=== PATIENT | female | born 1980 | race Caucasian/White ===

== ENCOUNTER 2017-10-01 19:00 | Observation (INO) ==
--- NOTE | 2017-10-01 19:31 | Emergency Department Note ---
Disposition Clinical Impression: Heart failure Disposition: Admitted As Inpatient Condition: Fair General Adult HPI - General Chief complaint: ED Extremity Problem,Nontraumatic Stated complaint: Feet swelling Nursing Notes Reviewed: Yes Vital Signs Reviewed: Yes - History of Present Illness HPI Narrative: 37-year-old female presents to the emergency department with chief complaint of lower extremity swelling. Patient states that this is bilateral. She states it started 2 days ago. Denies any shortness of breath. Denies any recent travel, history of blood clots, coagulopathies. Patient denies any history of congestive heart failure. Pain Scale: 7 - Related Data Home Medications Medication Instructions Recorded Confirmed Albuterol Sulfate [Albuterol 2 puff IH Q4HR PRN 09/09/17 10/01/17 Inhaler] Cetirizine HCl [24Hour Allergy] 10 mg PO DAILY 09/09/17 10/01/17 Fluticasone/Vilanterol [Breo 1 puff IH DAILY 09/09/17 10/01/17 Ellipta 100-25 Mcg INH] Allergies Allergy/AdvReac Type Severity Reaction Status Date / Time No Known Allergies Allergy Verified 09/09/17 12:28 All systems ED: reviewed and negative except as stated. Review of Systems: As Per HPI Constitutional: Denies: fever, weakness Cardiovascular: Denies: chest pain, palpitations, dyspnea on exertion Respiratory: Denies: cough, dyspnea, wheezes Gastrointestinal: Denies: abdominal pain, nausea, vomiting Genitourinary: Denies: urgency, dysuria Musculoskeletal: Denies: back pain Integumentary: Reports: rash Neurological: Denies: headache Psychiatric: Denies: depression Endocrine: Denies: polydipsia, polyuria Past Medical History - Past Medical History Medical history: Reports: asthma Surgical history: Reports: hysterectomy, orthopedic, other Psychiatric history: Reports: depression - Social History Smoking Status: Never smoker Smokeless Tobacco Status: No Alcohol use: Reports: none Drug use: Reports: none Physical Exam - General General appearance: in no apparent distress, obese - Head Head exam: atraumatic, normocephalic - Eye Eye exam: Present: normal appearance - ENT ENT exam: normal oropharynx, mucous membranes moist - Neck Neck exam: Present: full ROM, trachea midline - Chest Chest inspection: Present: normal inspection, symmetric chest wall rise - Respiratory Respiratory exam: Present: normal lung sounds bilaterally. Absent: respiratory distress - Cardiovascular Cardiovascular exam: Present: regular rate, normal rhythm, normal heart sounds - Abdominal Exam Abdominal exam: Present: soft, Non-Tender, other (Obese) - Extremities Exam Extremities exam: Present: pedal edema, other (1+ pitting edema bilaterally, erythema of the lower extremities consistent with venous stasis.) - Back Exam Back exam: Present: full ROM - Neurological Exam Neurological exam: Present: alert, oriented X3 - Psychiatric Psychiatric exam: Present: normal mood - Skin Skin exam: Present: warm, dry Course Vital Signs Temperature 98.4 F 10/01/17 19:01 Pulse Rate 99 10/01/17 19:01 Respiratory Rate 20 10/01/17 19:01 Blood Pressure 153/116 10/01/17 19:01 O2 Sat by Pulse Oximetry 96 10/01/17 19:01 Temperature 98.1 F 10/02/17 02:57 Pulse Rate 91 10/02/17 02:57 Respiratory Rate 16 10/02/17 02:57 Blood Pressure 129/90 10/02/17 02:57 O2 Sat by Pulse Oximetry 93 10/02/17 02:57 Oxygen Delivery Oxygen Delivery Room Air Medical Decision Making - [facility] Narrative Medical decision making narrative: 37-year-old female with past medical history of asthma presents to the emergency department with new onset lower extremity edema over the last 2 days. At this time, patient does have some erythema of the lower extremities. However, this does not appear to be cellulitic in nature. It appears to be more venous stasis. Patient has huge body habitus. Because of lower extremity swelling is bilateral in nature, and there are no palpable cords, patient is not having any shortness of breath, I do not think this is a pulmonary embolus. However, we will work this patient up to make sure she does not have any element of heart failure. We will obtain chest x-ray, EKG, BNP, BMP, CBC, troponin. We will also obtain a TSH. Patient is currently hemodynamically stable and not in any acute distress. Chest x-ray reveals evidence of mild vascular congestion and enlargement of the cardiac silhouette. Patient was given 40 mg Lasix in the emergency department. I discussed the results with the Patient admitted to hospitalist for further observation, diuresis, and workup of possible new congestive heart failure. Chest X-Ray 10/01/17 19:30 IMPRESSION: Mild central vascular congestion and interval cardiac silhouette enlargement. Bibasilar atelectasis. D/ / 10/01/2017 20:02:47 Florentino Gray MD / arina Interpreting Provider: Florentino Gray MD - Lab Data Result diagrams: 10/02/17 05:28 10/01/17 19:34 Lab Results 10/01/17 10/01/17 10/01/17 Range/Units 19:34 19:34 19:34 WBC 7.5 (4.3-11.1) K/mcL RBC 4.79 (3.82-4.97) M/mcL Hgb 13.5 (11.5-15.4) g/dL Hct 42.2 (35.3-44.9) % MCV 88.1 (83.0-100.0) fL MCH 28.2 (28.0-33.3) pg MCHC 32.0 (31.6-35.5) g/dL RDW 14.6 H (11.5-14.5) % Plt Count 190 (140-400) K/mcL MPV 10.2 (9.4-12.4) fL Immature Gran % 0.5 (0-4) % Seg Neutrophils % 65.8 % Lymphocytes % 24.3 % Monocytes % 5.4 % Eosinophils % 3.6 % Basophils % 0.4 % Neutrophils # 5.0 (1.6-8.9) K/mcL Lymphocytes # 1.8 (0.6-4.6) K/mcL Monocytes # 0.4 (0.0-1.3) K/mcL Eosinophils # 0.3 (0.0-0.6) K/mcL Basophils # 0.0 (0.0-0.2) K/mcL Sodium 141 (136-145) mEq/L Potassium 3.5 (3.5-5.1) mEq/L Chloride 107 (98-107) mEq/L Carbon Dioxide 27 (23-29) mEq/L BUN 9 (6-20) mg/dL Creatinine 0.77 (0.60-1.20) mg/dL Est GFR ( Amer) > 60 (> 60) Est GFR (Non-Af Amer) > 60 (> 60) BUN/Creatinine Ratio 12 (6-26) Glucose 92 (70-105) mg/dL Calculated Osmolality 290 (280-300) Calcium 8.7 (8.6-10.3) mg/dL Troponin I < 0.03 (< 0.04) ng/mL B-Natriuretic Peptide 8 (Less than 100) pg/mL TSH 4.363 (0.340-5.600) mcIU/mL 10/01/17 Range/Units 22:45 WBC (4.3-11.1) K/mcL RBC (3.82-4.97) M/mcL Hgb (11.5-15.4) g/dL Hct (35.3-44.9) % MCV (83.0-100.0) fL MCH (28.0-33.3) pg MCHC (31.6-35.5) g/dL RDW (11.5-14.5) % Plt Count (140-400) K/mcL MPV (9.4-12.4) fL Immature Gran % (0-4) % Seg Neutrophils % % Lymphocytes % % Monocytes % % Eosinophils % % Basophils % % Neutrophils # (1.6-8.9) K/mcL Lymphocytes # (0.6-4.6) K/mcL Monocytes # (0.0-1.3) K/mcL Eosinophils # (0.0-0.6) K/mcL Basophils # (0.0-0.2) K/mcL Sodium (136-145) mEq/L Potassium (3.5-5.1) mEq/L Chloride (98-107) mEq/L Carbon Dioxide (23-29) mEq/L BUN (6-20) mg/dL Creatinine (0.60-1.20) mg/dL Est GFR ( Amer) (> 60) Est GFR (Non-Af Amer) (> 60) BUN/Creatinine Ratio (6-26) Glucose (70-105) mg/dL Calculated Osmolality (280-300) Calcium (8.6-10.3) mg/dL Troponin I < 0.03 (< 0.04) ng/mL B-Natriuretic Peptide (Less than 100) pg/mL TSH (0.340-5.600) mcIU/mL - EKG Data EKG #1 EKG attestation: Yes I reviewed and interpreted this EKG. EKG results narrative: 10/01/2017 19:34 Ventricular rate 96 bpm, VA interval 150 ms, QRS duration 106. This, QT 375 ms , QTC 428 ms, normal axis. Sinus rhythm with a ventricular rate of 96 bpm. There is no evidence of any ischemic ST changes noted on this electrocardiogram. Attestation Statement - Attestation Attestation: I examined this patient and my medical decision-making was reviewed with the Resident Physician. I agree with the documented findings, disposition and treatment plan as described except to the extent set forth below. Findings consistent with cardiomegaly and possible heart failure. The patient will be admitted for echocardiogram and further management of possible heart failure. Lasix was given.
[2017-10-01 19:53] LABS: Basophils % 0.4 %; Eosinophils # 0.3 K/mcL (0.0-0.6); Eosinophils % 3.6 %; Hematocrit 42.2 % (35.3-44.9); Hemoglobin 13.5 g/dL (11.5-15.4); Immature Granulocytes % 0.5 % (0-4); Lymphocytes # 1.8 K/mcL (0.6-4.6); Lymphocytes % 24.3 %; Mean Corpuscular Hemoglobin 28.2 pg (28.0-33.3); Mean Corpuscular Volume 88.1 fL (83.0-100.0); Mean Platelet Volume 10.2 fL (9.4-12.4); Monocytes # 0.4 K/mcL (0.0-1.3); Monocytes % 5.4 %; Platelet Count 190 K/mcL (140-400); Red Blood Count 4.79 M/mcL (3.82-4.97); Red Cell Distribution Width 14.6 % (11.5-14.5); Segmented Neutrophils % 65.8 %
[2017-10-01 20:14] LABS: BUN/Creatinine Ratio 12 (6-26); Blood Urea Nitrogen 9 mg/dL (6-20); Calcium 8.7 mg/dL (8.6-10.3); Carbon Dioxide 27 mEq/L (23-29); Chloride 107 mEq/L (98-107); Glucose 92 mg/dL (70-105); Osmolality,Calculated 290 (280-300); Potassium 3.5 mEq/L (3.5-5.1); Sodium 141 mEq/L (136-145); eGFR For African Americans > 60 (> 60); eGFR For Non-African Americans > 60 (> 60)
[2017-10-01 20:16] LABS: Troponin I < 0.03 ng/mL (< 0.04)
[2017-10-01 20:27] LABS: Thyroid Stimulating Hormone 4.363 mcIU/mL (0.340-5.600)
[2017-10-01] MEDS ORDERED: Furosemide 40 MG/4 ML VIAL IVP ONE (20:43)
[2017-10-01] MEDS ORDERED: Naloxone 0.4 MG/ML INJ IVP PRN (22:38)
--- NOTE | 2017-10-01 22:47 | Internal Med History&Physical ---
<Clifford Hand - Last Filed: 10/01/17 23:11> Date of Encounter: 10/01/17 Time of Encounter: 22:43 Internal Medicine - H&P: HPI Chief complaint: ble edema Admitted From: Home Plans for Post Hospital Care: Home History of present illness: Ms. Kuhn is a 37 year old female w/ pmh of morbid obesity, asthma presents with bilateral lower leg edema that started this morning. She woke up this morning with swelling in both of her legs, she's never had swelling in her legs previously. Patient states that her symptoms have improved since she's arrived to the hospital prior to lasix administration. She believes that her swelling has gone down since elevating her legs in the hospital bed. She denies, pain in legs, numbness, tingling, chest pain, shortness of breath, confusion, palpitations, PND, orthopnea. Patient has previously had total hysterectomy, and carpal tunnel release years ago. Patient denies smoking or hormone usage. Past Med Surg Social Fam HX - Past Medical History Medical history: asthma Psychiatric history: depression - Past Surgical History Surgical History: hysterectomy, orthopedic, other - Social History Smoking Status: Never smoker Smokeless Tobacco Status: No Alcohol use: none Drug use: none Internal Medicine - H&P: Meds Albuterol Sulfate [Albuterol Inhaler] 2 puff IH Q4HR PRN 09/09/17 [History] Cetirizine HCl [24Hour Allergy] 10 mg PO DAILY 09/09/17 [History] Fluticasone/Vilanterol [Breo Ellipta 100-25 Mcg INH] 1 puff IH DAILY 09/09/17 [ History] 3 Allergy/AdvReac Type Severity Reaction Status Date / Time No Known Allergies Allergy Verified 09/09/17 12:28 All Systems PM: A 10-system review of systems was performed and is negative for pertinent findings except as documented above in the HPI. - Constitutional Constitutional: no chills, no fever(s), no night sweats - EENT Eyes: no change in vision, no discharge, no pain, no photophobia Ears: no ear discharge, no ear pain, no tinnitus Nose, mouth and throat: no dysphagia, no nasal discharge, no neck pain, no sore throat - Cardiovascular Cardiovascular ROS IM: no chest pain, no diaphoresis, no dyspnea, no edema, no irregular heart rhythm, no lightheadedness, no orthopnea, no palpitations, no paroxysmal nocturnal dyspnea, no syncope - Respiratory Respiratory: snoring, no cough, no dyspnea, no wheezing, no excessive phlegm production - Gastrointestinal Gastrointestinal: no abdominal pain, no diarrhea, no hematemesis, no hematochezia, no melena, no nausea, no vomiting - Genitourinary Genitourinary: no change in urinary stream, no dysuria, no flank pain, no hematuria - Musculoskeletal Musculoskeletal ROS IM: no numbness, no tingling - Integumentary Integumentary IM: no rash, no unusual bruising - Neurological Neurological ROS: no confusion, no convulsions, no focal weakness, no numbness, no tingling, no tremor(s) - Hematologic/Lymphatic Hematologic/Lymphatic: no easy bruising - Constitutional Vitals: Temp Pulse Resp BP Pulse Ox 98.4 F 107 14 138/90 98 10/01/17 19:36 10/01/17 20:50 10/01/17 20:50 10/01/17 20:50 10/01/17 20:50 General appearance: Present: cooperative, A&O X 3, morbidly obese, pleasant, no acute distress, answers questions appropriately - Head Head exam: Present: atraumatic, normocephalic - Eye Eye exam: Present: PERRL, conjuntiva pink, sclera anicteric Pupils: Present: PERRL - Neck Neck exam general surgery: Present: supple, trachea midline. Absent: lymphadenopathy - Respiratory Respiratory exam: Present: CTAB. Absent: accessory muscle use, rales, rhonchi, wheezes - Cardiovascular Cardiovascular exam: Present: distant heart sounds, RRR. Absent: diastolic murmur, gallop, irregular rhythm, JVD, rubs, +S3, systolic murmur, tachycardia - GI/Abdominal GI/Abdominal exam: Present: normal bowel sounds, soft, no peritoneal signs. Absent: diminished bowel sounds, distended, firm, guarding, hepatomegaly, rebound, rigid, splenomegaly, tenderness - Extremities Exam Extremities exam: Present: warm, radial pulses palpable and symmetrical. Absent : calf tenderness, cyanotic, pedal edema - Neurological Exam Neurological exam: Present: CN II-XII intact, oriented X3, no focal deficits. Absent: pronater drift, facial droop, speech deficit - Skin Skin exam: Present: dry, intact Internal Med - H&P Results - Labs CBC & Chem 7: 10/01/17 19:34 10/01/17 19:34 Labs: Short CBC 10/01/17 Range/Units 19:34 WBC 7.5 (4.3-11.1) K/mcL Hgb 13.5 (11.5-15.4) g/dL Hct 42.2 (35.3-44.9) % Plt Count 190 (140-400) K/mcL Neutrophils # 5.0 (1.6-8.9) K/mcL BMP 10/01/17 19:34 Sodium 141 Potassium 3.5 Chloride 107 Carbon Dioxide 27 BUN 9 Creatinine 0.77 Glucose 92 Calcium 8.7 Cardiac Enzymes 10/01/17 Range/Units 19:34 Troponin I < 0.03 (< 0.04) ng/mL - Impressions ITS Impressions Chest X-Ray 10/01/17 19:30 IMPRESSION: Mild central vascular congestion and interval cardiac silhouette enlargement. Bibasilar atelectasis. D/ / 10/01/2017 20:02:47 Florentino Gray MD / arina Interpreting Provider: Florentino Gray MD - Assessment and plan (1) Bilateral lower extremity edema Current Visit: Yes Status: Acute Assessment and plan: Patient has one day onset of bilateral lower extremity edema which has responded to lasix treatment given in ED. Patient only risk factor for CHF is morbid obesity. Patient does not have HTN, HLD, T2DM, smoking hx, or family history. BNP and trop negative. EKG showed sinus rhythm. Patient to have echo in the morning, and continued treatment with lasix. Due to patient's habitus, patient will benefit from outpatient sleep study. - cardiac diet; fluid limit to 1.5L and 2g Na - lasix PO 40 - echo in the AM - lipid panel - ordered (2) Sinus tachycardia Current Visit: Yes Status: Acute Assessment and plan: Patient was not tachy on admission, but during encounter her last HR was 107. EKG read as sinus rhythm, trops negative x1. PERC score 0 +/-1 for episodic sinus tachy. WELL's 0-1.5 for episodic tachy. Patient is low risk for PE. will further workup if patient develops difficutly breathing, sustained tachy, or develops chest pain. Patient will have DVT prophylaxis during hospitalization - trend trops (3) DVT prophylaxis Current Visit: Yes Status: Acute Assessment and plan: SQ heparin (4) Morbid obesity due to excess calories Current Visit: Yes Status: Acute Assessment and plan: Discussed with patient the benefits of weight loss. To be followed up outpatient. - Time Spent With Patient Total time spent is greater than 50% in coordination of care (as documented) at patient's floor/unit and/or counseling patient: <LavellEvelyn street - Last Filed: 10/02/17 00:37> Date of Encounter: 10/02/17 Time of Encounter: 23:30 Internal Medicine - H&P: HPI History of present illness: Ms. Kuhn is a 37 year old female All Systems PM: A 10-system review of systems was performed and is negative for pertinent findings except as documented above in the HPI. - Constitutional Vitals: Temp Pulse Resp BP Pulse Ox 98.4 F 96 16 148/82 92 10/01/17 19:36 10/01/17 23:12 10/01/17 22:43 10/01/17 23:12 10/01/17 23:12 Internal Med - H&P Results - Labs CBC & Chem 7: 10/01/17 19:34 10/01/17 19:34 - Attending Attestation Patient independently seen and examined at bedside. Pt resting in bed and reports of improvement in her symptoms after receiving lasix. Pt is morbidly obese and acknowledges the need for life style modifications Denies any chest pain or shortness of breath. Noted to have trace b/L LE edema, however pt states that the edema was a lot worst upon arrival to the ER. CXR reviewed. Will obtain 2D echo PO lasix DVT ppx Case discussed with resident physician Clifford Hand, I agree with his documented findings, assessment, and plan except as listed above. - Assessment and plan (1) Bilateral lower extremity edema Current Visit: Yes Status: Acute (2) Sinus tachycardia Current Visit: Yes Status: Acute (3) DVT prophylaxis Current Visit: Yes Status: Acute (4) Morbid obesity due to excess calories Current Visit: Yes Status: Acute - Time Spent With Patient Total time spent is greater than 50% in coordination of care (as documented) at patient's floor/unit and/or counseling patient:
[2017-10-02 05:46] LABS: Basophils % 0.4 %; Eosinophils # 0.2 K/mcL (0.0-0.6); Eosinophils % 2.5 %; Hematocrit 43.8 % (35.3-44.9); Hemoglobin 13.8 g/dL (11.5-15.4); Immature Granulocytes % 0.4 % (0-4); Lymphocytes # 1.6 K/mcL (0.6-4.6); Lymphocytes % 21.6 %; Mean Corpuscular HGB Conc 31.5 g/dL (31.6-35.5); Mean Corpuscular Volume 88.8 fL (83.0-100.0); Mean Platelet Volume 9.8 fL (9.4-12.4); Monocytes # 0.4 K/mcL (0.0-1.3); Monocytes % 5.2 %; Neutrophils # 5.1 K/mcL (1.6-8.9); Platelet Count 181 K/mcL (140-400); Red Blood Count 4.93 M/mcL (3.82-4.97); Red Cell Distribution Width 14.6 % (11.5-14.5); Segmented Neutrophils % 69.9 %
[2017-10-02] MEDS ORDERED: *HR* Heparin 5,000 UNIT/ML VIAL SQ SCH (06:00)
[2017-10-02 06:03] LABS: BUN/Creatinine Ratio 11 (6-26); Blood Urea Nitrogen 9 mg/dL (6-20); Calcium 8.6 mg/dL (8.6-10.3); Carbon Dioxide 29 mEq/L (23-29); Chloride 105 mEq/L (98-107); Chol/HDL Ratio 5.9 (0-4.9); Cholesterol 165 mg/dL (< 200); Glucose 106 mg/dL (70-105); HDL Cholesterol 28 mg/dL (40-59); LDL Cholesterol,Calculated 104 mg/dL (0-99); Osmolality,Calculated 289 (280-300); Potassium 3.8 mEq/L (3.5-5.1); Sodium 140 mEq/L (136-145); Triglycerides 163 mg/dL (< 150); eGFR For African Americans > 60 (> 60); eGFR For Non-African Americans > 60 (> 60)
--- NOTE | 2017-10-02 08:05 | Discharge Summary ---
Date of Encounter: 10/02/17 - Discharge Diagnosis (1) Bilateral lower extremity edema Status: Acute (2) Sinus tachycardia Status: Acute (3) DVT prophylaxis Status: Acute (4) Morbid obesity due to excess calories Status: Acute Hospital course: Ms. Kuhn is a 37 year old female - Time Spent with Patient Total time spent providing and/or coordinating discharge services: - Discharge Medications Home Medications: Albuterol Sulfate [Albuterol Inhaler] 2 puff IH Q4HR PRN 09/09/17 [History] Cetirizine HCl [24Hour Allergy] 10 mg PO DAILY 09/09/17 [History] Fluticasone/Vilanterol [Breo Ellipta 100-25 Mcg INH] 1 puff IH DAILY 09/09/17 [ History] Allergies/Adverse Reactions: 3 Allergy/AdvReac Type Severity Reaction Status Date / Time No Known Allergies Allergy Verified 09/09/17 12:28 Date of admission: 10/01/17 22:59 Primary care physician: Kirsten Reeves - Constitutional Vitals: Temp Pulse Resp BP Pulse Ox 98.0 F 89 16 134/84 95 10/02/17 07:22 10/02/17 07:22 10/02/17 07:22 10/02/17 07:22 10/02/17 07:22 General appearance: Present: cooperative, A&O X 3, morbidly obese, pleasant, no acute distress, answers questions appropriately - Patient Status Condition: Fair - Discharge Instructions Follow Up With: Shawn Sheffield DO [Primary Care Provider] -
[2017-10-02] MEDS ORDERED: Furosemide Oral Soln 40 MG/4 ML UDC PO SCH (09:00)
[2017-10-02] MEDS ORDERED: Isovue-370 500 ML INFUS..BTL IV ONE (11:07)
--- NOTE | 2017-10-02 12:16 | Electrocardiograph Report ---
[facility] [employer] Test Date: 2017-10-01 Pat Name: Mabel Kuhn Department: 102 Room: [facility] Gender: F [employer] Technician: Ekp : 1980 Requested By: Hunter Manuel Order Number: [id number] Reading MD: Shawn Sheffield Measurements Intervals [place] Rate: 96 P: 32 VT: 150 QRS: 18 QRSD: 106 T: 25 QT: 375 QTc: 428 Interpretive Statements SINUS RHYTHM Electronically Signed On 10-02-2017 12:14:18 EDT by Shawn Sheffield
[2017-10-02] MEDS ORDERED: Perflutren Lipid Microsphere 1.3 ML in 0.9 % Sodium Chloride 8.7 ML IVP ONE (15:11)
[2017-10-02] MEDS ORDERED: Perflutren Lipid Microsphere 2 ML VIAL ONE (16:12)
[2017-10-02 16:35] VITALS: BP 143/96
--- NOTE | 2017-10-02 17:06 | Discharge Summary ---
<Bryson Zuluaga - Last Filed: 10/02/17 17:04> - NOTES TO OUTPATIENT PROVIDER Notes to Outpatient Provider: Patient presented with lower extremity edema. She was admitted for further workup. Echocardiogram showed 55% ejection fraction with dilated left ventricle and diastolic dysfunction. Patient was discharged on Lasix. Also there was concern for DVT and PE as d-dimer is elevated underwent CTA and bilateral lower extremity Dopplers which were negative. She was given Lasix IV inpatient and diuresis successfully. She is not requiring any oxygen. She is tolerating her diet and ambulating independently. Needs to be worked up for ischemic heart disease and sleep apnea. Needs stress test. Date of Encounter: 10/02/17 Time of Encounter: 17:04 - Discharge Diagnosis (1) Diastolic heart failure Priority: Primary Status: Acute Assessment and Plan: acute heart failure resolved. Qualifiers: Heart failure chronicity: acute on chronic Qualified Code(s): I50.33 - Acute on chronic diastolic (congestive) heart failure (2) Sinus tachycardia Priority: Secondary Status: Resolved Assessment and Plan: 2nd to chf exacerbation. (3) DVT prophylaxis Priority: Secondary Status: Acute (4) Morbid obesity due to excess calories Priority: Secondary Status: Chronic (5) Dilated cardiomyopathy Priority: Secondary Status: Acute Assessment and Plan: unclear etiology needs outpatient workup. Hospital course: Ms. Kuhn is a 37 year old female presented with lower extremity edema. Reported that she woke up with swelling in both her legs. She has never had this before. She denied chest pain, shortness of breath, fatigue, syncope. She was admitted for further workup. Echocardiogram showed 55% ejection fraction with dilated left ventricle and diastolic dysfunction. Also there was concern for DVT and PE as d-dimer is elevated underwent CTA and bilateral lower extremity Dopplers which were negative. She was given Lasix IV inpatient and diuresis successfully with resolution of lower extremity edema. She is not requiring any oxygen. She is tolerating her diet and ambulating independently. Patient will need to be worked up further for ischemic heart disease outpatient as well as sleep apnea. Patient was discharged on Lasix. Discharge discussed with: patient - Time Spent with Patient Total time spent providing and/or coordinating discharge services: - Discharge Medications Prescriptions: Furosemide [Lasix] 20 mg PO DAILY #30 tablet Home Medications: Albuterol Sulfate [Albuterol Inhaler] 2 puff IH Q4HR PRN 09/09/17 [History] Cetirizine HCl [24Hour Allergy] 10 mg PO DAILY 09/09/17 [History] Fluticasone/Vilanterol [Breo Ellipta 100-25 Mcg INH] 1 puff IH DAILY 09/09/17 [ History] Furosemide [Lasix] 20 mg PO DAILY #30 tablet 10/02/17 [Rx] Allergies/Adverse Reactions: 3 Allergy/AdvReac Type Severity Reaction Status Date / Time No Known Allergies Allergy Verified 09/09/17 12:28 Date of admission: 10/01/17 22:59 Primary care physician: Kirsten Reeves Discharging clinician: Bryson Zuluaga Anticipated date of discharge: 10/02/17 - Constitutional Vitals: Temp Pulse Resp BP Pulse Ox 97.6 F 95 17 143/96 92 10/02/17 16:33 10/02/17 16:33 10/02/17 16:33 10/02/17 16:33 10/02/17 16:33 General appearance: Present: cooperative, A&O X 3, morbidly obese, pleasant, no acute distress, answers questions appropriately - Other Additional findings: General: Pleasant without distress HEENT: Head atraumatic, normocephalic, EOMI, PERRL, neck nontender to palpation , absent lymphadenopathy, Moist Mucous Membranes, Heart: Regular rate and rhythm with no murmur Lungs: Clear to auscultation bilaterally Abdomen: Soft nontender, nondistended positive bowel sounds Skin: warm and dry, absent rash Extremities: Absent pedal edema, Neuro: Alert oriented 3 Vascular: Pedal and radial pulses 2 out of 4 - Patient Status Disposition: Home, Self-Care Condition: Fair Functional capacity at discharge: independent ambulation Overall status at discharge: patient is not back to baseline - Discharge Instructions Instructions: Heart Failure (DC), Seasoning Without Salt (DC), Low Sodium Diet (DC) Follow Up With: Shawn Sheffield DO [Primary Care Provider] - (Please go to your PCP appointment this friday for follow-up) - Diet and Activity Activity: as per physical therapy Diet: low fat, low cholesterol, low salt diet <Domenico Wang - Last Filed: 10/02/17 19:18> Date of Encounter: 10/02/17 - Discharge Diagnosis (1) Diastolic heart failure Status: Acute Qualifiers: Heart failure chronicity: acute on chronic Qualified Code(s): I50.33 - Acute on chronic diastolic (congestive) heart failure (2) Dilated cardiomyopathy Status: Acute (3) Sinus tachycardia Status: Resolved (4) DVT prophylaxis Status: Acute (5) Morbid obesity due to excess calories Status: Chronic Hospital course: Ms. Kuhn is a 37 year old female - Time Spent with Patient Total time spent providing and/or coordinating discharge services: 28min Date of admission: 10/01/17 22:59 Primary care physician: Kirsten Reeves - Constitutional Vitals: Temp Pulse Resp BP Pulse Ox 97.6 F 95 17 143/96 92 10/02/17 16:33 10/02/17 16:33 10/02/17 16:33 10/02/17 16:33 10/02/17 16:33 - Attending Attestation I examined this patient and my medical decision-making was reviewed with the Resident Physician on 10/02/17. I agree with the documented findings, disposition and treatment plan as described except to the extent set forth below. Ms Kuhn has been in observation for lower extremity edema. She has improved with diuresis. Echo difficult due to size. No DVT or PE. She is currently afebrile and stable for discharge home. Exam alert Comfortable Mucus membranes dry Not tachy now No wheeze Plan D/C home on PO Lasix with PCP follow up.
== END 2017-10-02 17:30 | disposition home or self-care (01) ==
LOC: EMEROO 19:00 → 2SOUTHHOLD 19:00 → SUATTDRO 22:59 → 2SOUTHHOLD 23:23
PROVIDERS: ADMIT Internal Medicine; ATTEND Internal Medicine

== ENCOUNTER 2021-03-06 04:57 | Inpatient (IN) ==
[2021-03-06 05:43] LABS: Basophils % 0.1 %; Hematocrit 41.3 % (35.3-44.9); Immature Granulocytes % 0.7 % (0-4); Lymphocytes # 0.7 K/mcL (0.6-4.6); Lymphocytes % 9.7 %; Mean Corpuscular HGB Conc 31.5 g/dL (31.6-35.5); Mean Corpuscular Hemoglobin 28.2 pg (28.0-33.3); Mean Corpuscular Volume 89.6 fL (83.0-100.0); Mean Platelet Volume 10.1 fL (9.4-12.4); Monocytes # 0.4 K/mcL (0.0-1.3); Monocytes % 5.4 %; Platelet Count 161 K/mcL (140-400); Red Blood Count 4.61 M/mcL (3.82-4.97); Red Cell Distribution Width 16.1 % (11.5-14.5); Segmented Neutrophils % 84.1 %; White Blood Count 7.1 K/mcL (4.3-11.1)
[2021-03-06 06:08] LABS: BUN/Creatinine Ratio 16 (6-26); Blood Urea Nitrogen 14 mg/dL (6-20); Calcium 8.3 mg/dL (8.6-10.3); Carbon Dioxide 30 mEq/L (23-29); Chloride 104 mEq/L (98-107); Glucose 116 mg/dL (70-105); Osmolality,Calculated 291 (280-300); Potassium 3.4 mEq/L (3.5-5.1); Sodium 140 mEq/L (136-145); eGFR For African Americans > 60 (> 60); eGFR For Non-African Americans > 60 (> 60)
[2021-03-06 06:09] LABS: Troponin I < 0.03 ng/mL (< 0.04)
[2021-03-06] MEDS ORDERED: Dexamethasone Sodium Phos/PF 10 MG/ML VIAL IVP ONE (07:54)
[2021-03-06] MEDS ORDERED: Acetaminophen 325 MG TABLET PO PRN (07:56)
[2021-03-06] MEDS ORDERED: Melatonin 3 MG TABLET PO PRN (07:56)
[2021-03-06] MEDS ORDERED: Ondansetron 4 MG/2 ML VIAL IVP PRN (07:56)
[2021-03-06 08:56] LABS: Alanine Aminotransferase 18 Units/L (7-52); Albumin 3.7 g/dL (3.5-5.7); Albumin/Globulin Ratio 1.1 (1.1-2.2); Alkaline Phosphatase 64 Units/L (34-104); Aspartate Amino Transferase 25 Units/L (13-39); Bilirubin,Direct 0.2 mg/dL (0.0-0.2); Bilirubin,Indirect 0.4 mg/dL (0.0-1.0); Bilirubin,Total 0.6 mg/dL (0.3-1.0); Globulin 3.3 g/dL (2.4-3.5)
[2021-03-06] MEDS: Budesonide/Formoterol 80/4.5 1 PUFF INH IH SCH ×3 (09:27→22:45)
[2021-03-06] MEDS: Metoprolol XL (24 HR) Succ 25 MG TAB.ER.24H PO SCH (09:28)
[2021-03-07 00:56] LABS: Hematocrit 39.8 % (35.3-44.9); Hemoglobin 12.7 g/dL (11.5-15.4); Mean Corpuscular HGB Conc 31.9 g/dL (31.6-35.5); Mean Corpuscular Hemoglobin 28.9 pg (28.0-33.3); Mean Corpuscular Volume 90.5 fL (83.0-100.0); Mean Platelet Volume 10.3 fL (9.4-12.4); Platelet Count 174 K/mcL (140-400); Red Cell Distribution Width 15.7 % (11.5-14.5)
[2021-03-07 01:44] LABS: BUN/Creatinine Ratio 22 (6-26); Blood Urea Nitrogen 16 mg/dL (6-20); Calcium 8.5 mg/dL (8.6-10.3); Carbon Dioxide 27 mEq/L (23-29); Chloride 107 mEq/L (98-107); Glucose 114 mg/dL (70-105); Magnesium 2.3 mg/dL (1.6-2.6); Osmolality,Calculated 296 (280-300); Phosphorous 3.2 mg/dL (2.7-4.5); Potassium 3.9 mEq/L (3.5-5.1); Sodium 142 mEq/L (136-145); eGFR For African Americans > 60 (> 60); eGFR For Non-African Americans > 60 (> 60)
[2021-03-07 05:02] LABS: Bacteria,Urine Few per hpf (None-Few); Bilirubin,Urine Negative (Negative); Blood,Urine Negative (Negative); Clarity,Urine Clear (Clear); Color,Urine Yellow (Yellow); Glucose,Urine (UA) Normal (Normal); Ketones,Urine 20 mg/dL (Negative); Leukocyte Esterase,Urine Negative (Negative); Mucus,Urine Few per lpf (None-Few); Nitrite,Urine Negative (Negative); Protein,Urine 70 mg/dL (Neg-Trace); RBC,Urine 0-3 per hpf (0-3); Specific Gravity,Urine > 1.030 (1.010-1.025); Squamous Epithelial Cell,Urine Moderate per hpf (None-Few); Urobilinogen,Urine Normal (Normal)
[2021-03-07] MEDS ORDERED: *HR* Enoxaparin 40 MG/0.4 ML SYRINGE SQ SCH (06:00)
[2021-03-07] MEDS: Dexamethasone Sodium Phos/PF 10 MG/ML VIAL IVP SCH (08:21)
[2021-03-07] MEDS: Metoprolol XL (24 HR) Succ 25 MG TAB.ER.24H PO SCH (08:22)
[2021-03-07] MEDS: Budesonide/Formoterol 80/4.5 1 PUFF INH IH SCH ×2 (09:55→20:25)
[2021-03-07] MEDS ORDERED: Benzonatate 100 MG CAPSULE PO PRN (17:25)
[2021-03-07] MEDS ORDERED: Saline Nasal Spray 44 ML BOTTLE NS PRN (18:13)
[2021-03-07] MEDS: Tiotropium 10 INH DOSE IH SCH (18:18)
[2021-03-07] MEDS: Cholecalciferol (D-3) 1,000 UNIT (25MCG) TABLET PO SCH (18:39)
[2021-03-07] MEDS: *HR* Enoxaparin 40 MG/0.4 ML SYRINGE SQ SCH (18:39)
[2021-03-07] MEDS: Zinc Sulfate 220 MG CAPSULE PO SCH (18:39)
[2021-03-07] MEDS: Thiamine (B-1) 100 MG TABLET PO SCH (18:39)
[2021-03-08 04:41] LABS: C-Reactive Protein 119 mg/L (Less than 10); Lactate Dehydrogenase 208 Units/L (140-271)
[2021-03-08] MEDS: *HR* Enoxaparin 40 MG/0.4 ML SYRINGE SQ SCH ×2 (05:42→17:36)
[2021-03-08 06:12] LABS: Ferritin 132 ng/mL (10-120)
[2021-03-08] MEDS: Budesonide/Formoterol 80/4.5 1 PUFF INH IH SCH ×2 (07:55→20:33)
[2021-03-08] MEDS: Cholecalciferol (D-3) 1,000 UNIT (25MCG) TABLET PO SCH (08:20)
[2021-03-08] MEDS: Zinc Sulfate 220 MG CAPSULE PO SCH (08:21)
[2021-03-08] MEDS: Thiamine (B-1) 100 MG TABLET PO SCH (08:21)
[2021-03-08] MEDS: Metoprolol XL (24 HR) Succ 25 MG TAB.ER.24H PO SCH (08:22)
[2021-03-08] MEDS: Dexamethasone Sodium Phos/PF 10 MG/ML VIAL IVP SCH (08:22)
[2021-03-08 11:30] LABS: Albumin 3.5 g/dL (3.5-5.7); Albumin/Globulin Ratio 1.1 (1.1-2.2); Bilirubin,Direct 0.2 mg/dL (0.0-0.2); Bilirubin,Indirect 0.3 mg/dL (0.0-1.0); Bilirubin,Total 0.5 mg/dL (0.3-1.0); Globulin 3.1 g/dL (2.4-3.5); Total Protein 6.6 g/dL (6.4-8.9)
[2021-03-08] MEDS: Tiotropium 10 INH DOSE IH SCH (11:30)
[2021-03-08 14:28] LABS: C-Reactive Protein 129 mg/L (Less than 10)
[2021-03-09] MEDS: *HR* Enoxaparin 40 MG/0.4 ML SYRINGE SQ SCH ×2 (05:38→17:31)
[2021-03-09 06:23] LABS: Basophils % 0.5 %; Hematocrit 40.6 % (35.3-44.9); Hemoglobin 12.3 g/dL (11.5-15.4); Immature Granulocytes % 1.6 % (0-4); Lymphocytes # 1.4 K/mcL (0.6-4.6); Lymphocytes % 17.3 %; Mean Corpuscular HGB Conc 30.3 g/dL (31.6-35.5); Mean Corpuscular Hemoglobin 27.6 pg (28.0-33.3); Mean Platelet Volume 11.1 fL (9.4-12.4); Monocytes # 0.6 K/mcL (0.0-1.3); Neutrophils # 5.8 K/mcL (1.6-8.9); Platelet Count 200 K/mcL (140-400); Red Blood Count 4.46 M/mcL (3.82-4.97); Red Cell Distribution Width 15.5 % (11.5-14.5); Segmented Neutrophils % 72.6 %
[2021-03-09 06:34] LABS: Fibrinogen 433 mg/dL (169-393)
[2021-03-09 06:37] LABS: D-Dimer 725 ng/mLFEU (0-500)
[2021-03-09 06:44] LABS: BUN/Creatinine Ratio 25 (6-26); Blood Urea Nitrogen 19 mg/dL (6-20); Calcium 8.5 mg/dL (8.6-10.3); Carbon Dioxide 28 mEq/L (23-29); Chloride 107 mEq/L (98-107); Glucose 89 mg/dL (70-105); Osmolality,Calculated 292 (280-300); Sodium 140 mEq/L (136-145); eGFR For African Americans > 60 (> 60); eGFR For Non-African Americans > 60 (> 60)
[2021-03-09] MEDS: Tiotropium 10 INH DOSE IH SCH (07:37)
[2021-03-09] MEDS: Budesonide/Formoterol 80/4.5 1 PUFF INH IH SCH ×2 (07:37→19:50)
[2021-03-09] MEDS: Cholecalciferol (D-3) 1,000 UNIT (25MCG) TABLET PO SCH (10:05)
[2021-03-09] MEDS: Thiamine (B-1) 100 MG TABLET PO SCH (10:05)
[2021-03-09] MEDS: Zinc Sulfate 220 MG CAPSULE PO SCH (10:05)
[2021-03-09] MEDS: Metoprolol XL (24 HR) Succ 25 MG TAB.ER.24H PO SCH (10:05)
[2021-03-09] MEDS: Dexamethasone Sodium Phos/PF 10 MG/ML VIAL IVP SCH (10:05)
[2021-03-10 03:13] LABS: BUN/Creatinine Ratio 26 (6-26); Blood Urea Nitrogen 19 mg/dL (6-20); Calcium 8.2 mg/dL (8.6-10.3); Carbon Dioxide 26 mEq/L (23-29); Chloride 107 mEq/L (98-107); Glucose 99 mg/dL (70-105); Osmolality,Calculated 292 (280-300); Potassium 4.1 mEq/L (3.5-5.1); Sodium 140 mEq/L (136-145); eGFR For African Americans > 60 (> 60); eGFR For Non-African Americans > 60 (> 60)
[2021-03-10 04:30] LABS: Hematocrit 40.3 % (35.3-44.9); Hemoglobin 12.3 g/dL (11.5-15.4); Mean Corpuscular HGB Conc 30.5 g/dL (31.6-35.5); Mean Corpuscular Hemoglobin 27.8 pg (28.0-33.3); Mean Corpuscular Volume 91.2 fL (83.0-100.0); Mean Platelet Volume 10.6 fL (9.4-12.4); Platelet Count 202 K/mcL (140-400); Red Blood Count 4.42 M/mcL (3.82-4.97); Red Cell Distribution Width 15.3 % (11.5-14.5); White Blood Count 8.2 K/mcL (4.3-11.1)
[2021-03-10] MEDS: *HR* Enoxaparin 40 MG/0.4 ML SYRINGE SQ SCH ×2 (05:53→18:21)
[2021-03-10 07:38] LABS: Lymphocytes # 1.8 K/mcL (0.6-4.6); Monocytes # 0.3 K/mcL (0.0-1.3); Neutrophils # 6.1 K/mcL (1.6-8.9); Platelet Estimate Normal (Normal); Reactive Lymphocytes Present (Not Present)
[2021-03-10] MEDS: Tiotropium 10 INH DOSE IH SCH (08:13)
[2021-03-10] MEDS: Budesonide/Formoterol 80/4.5 1 PUFF INH IH SCH ×2 (08:14→20:17)
[2021-03-10] MEDS: Dexamethasone Sodium Phos/PF 10 MG/ML VIAL IVP SCH (09:46)
[2021-03-10] MEDS: Cholecalciferol (D-3) 1,000 UNIT (25MCG) TABLET PO SCH (09:47)
[2021-03-10] MEDS: Thiamine (B-1) 100 MG TABLET PO SCH (09:47)
[2021-03-10] MEDS: Zinc Sulfate 220 MG CAPSULE PO SCH (09:47)
[2021-03-10] MEDS: Metoprolol XL (24 HR) Succ 25 MG TAB.ER.24H PO SCH (09:47)
[2021-03-11 05:14] LABS: Hematocrit 42.3 % (35.3-44.9); Hemoglobin 12.9 g/dL (11.5-15.4); Mean Corpuscular HGB Conc 30.5 g/dL (31.6-35.5); Mean Corpuscular Hemoglobin 27.9 pg (28.0-33.3); Mean Corpuscular Volume 91.4 fL (83.0-100.0); Platelet Count 206 K/mcL (140-400); Red Blood Count 4.63 M/mcL (3.82-4.97); Red Cell Distribution Width 15.2 % (11.5-14.5); White Blood Count 9.4 K/mcL (4.3-11.1)
[2021-03-11 05:31] LABS: Fibrinogen 321 mg/dL (169-393)
[2021-03-11 05:35] LABS: D-Dimer 772 ng/mLFEU (0-500)
[2021-03-11 05:50] LABS: BUN/Creatinine Ratio 27 (6-26); Blood Urea Nitrogen 21 mg/dL (6-20); Calcium 8.6 mg/dL (8.6-10.3); Carbon Dioxide 27 mEq/L (23-29); Chloride 107 mEq/L (98-107); Glucose 86 mg/dL (70-105); Osmolality,Calculated 292 (280-300); Potassium 4.3 mEq/L (3.5-5.1); Sodium 140 mEq/L (136-145); eGFR For African Americans > 60 (> 60); eGFR For Non-African Americans > 60 (> 60)
[2021-03-11 06:22] LABS: Lymphocytes # 1.9 K/mcL (0.6-4.6); Monocytes # 0.4 K/mcL (0.0-1.3); Platelet Estimate Normal (Normal); Reactive Lymphocytes Present (Not Present)
[2021-03-11] MEDS: *HR* Enoxaparin 40 MG/0.4 ML SYRINGE SQ SCH ×2 (06:31→17:05)
[2021-03-11] MEDS: Budesonide/Formoterol 80/4.5 1 PUFF INH IH SCH ×2 (08:18→20:13)
[2021-03-11] MEDS: Tiotropium 10 INH DOSE IH SCH (08:18)
[2021-03-11] MEDS ORDERED: Dexamethasone Sodium Phos/PF 10 MG/ML VIAL IVP SCH (09:00)
[2021-03-11] MEDS: Cholecalciferol (D-3) 1,000 UNIT (25MCG) TABLET PO SCH (09:46)
[2021-03-11] MEDS: Thiamine (B-1) 100 MG TABLET PO SCH (09:46)
[2021-03-11] MEDS: Metoprolol XL (24 HR) Succ 25 MG TAB.ER.24H PO SCH (09:46)
[2021-03-11] MEDS: Zinc Sulfate 220 MG CAPSULE PO SCH (09:46)
[2021-03-12 06:20] LABS: Basophils # 0.1 K/mcL (0.0-0.2); Basophils % 0.6 %; Eosinophils # 0.1 K/mcL (0.0-0.6); Eosinophils % 0.9 %; Hematocrit 42.5 % (35.3-44.9); Hemoglobin 13.3 g/dL (11.5-15.4); Immature Granulocytes % 4.5 % (0-4); Lymphocytes % 24.5 %; Mean Corpuscular HGB Conc 31.3 g/dL (31.6-35.5); Mean Corpuscular Hemoglobin 28.1 pg (28.0-33.3); Mean Corpuscular Volume 89.7 fL (83.0-100.0); Mean Platelet Volume 10.5 fL (9.4-12.4); Monocytes # 0.5 K/mcL (0.0-1.3); Monocytes % 6.3 %; Neutrophils # 5.1 K/mcL (1.6-8.9); Platelet Count 200 K/mcL (140-400); Red Blood Count 4.74 M/mcL (3.82-4.97); Red Cell Distribution Width 15.1 % (11.5-14.5); Segmented Neutrophils % 63.2 %
[2021-03-12] MEDS: *HR* Enoxaparin 40 MG/0.4 ML SYRINGE SQ SCH (06:20)
[2021-03-12 06:37] LABS: BUN/Creatinine Ratio 26 (6-26); Blood Urea Nitrogen 21 mg/dL (6-20); Calcium 8.5 mg/dL (8.6-10.3); Carbon Dioxide 29 mEq/L (23-29); Chloride 107 mEq/L (98-107); Glucose 76 mg/dL (70-105); Osmolality,Calculated 294 (280-300); Potassium 4.2 mEq/L (3.5-5.1); Sodium 141 mEq/L (136-145); eGFR For African Americans > 60 (> 60); eGFR For Non-African Americans > 60 (> 60)
[2021-03-12 07:27] VITALS: TEMP 98.2
[2021-03-12] MEDS: Budesonide/Formoterol 80/4.5 1 PUFF INH IH SCH (08:02)
[2021-03-12] MEDS: Tiotropium 10 INH DOSE IH SCH (08:06)
[2021-03-12] MEDS: Cholecalciferol (D-3) 1,000 UNIT (25MCG) TABLET PO SCH (08:08)
[2021-03-12] MEDS: Zinc Sulfate 220 MG CAPSULE PO SCH (08:08)
[2021-03-12] MEDS: Thiamine (B-1) 100 MG TABLET PO SCH (08:08)
[2021-03-12] MEDS: Metoprolol XL (24 HR) Succ 25 MG TAB.ER.24H PO SCH (08:09)
[2021-03-12] MEDS ORDERED: dexAMETHasone 4 MG TABLET PO SCH (09:00)
[2021-03-12 11:25] VITALS: BP 129/82; PULSE 54
[2021-03-12 16:31] VITALS: O2SAT 90
== END 2021-03-12 17:31 | disposition left against medical advice (07) | DRG 720 ==
LOC: EMEROOARM 04:57 → 2NENU 20:16 → SUATTDRO 20:16 → 2NENU 21:30
PROVIDERS: ADMIT Internal Medicine; ATTEND Student in an Organized Health Care Education/Training Program